=== PATIENT | male | born 1980 | race Caucasian/White ===

== ENCOUNTER 2016-07-31 10:33 | Emergency (ER) | payer OTHER ==
[2016-07-31 11:18] VITALS: BP 111/69; PULSE 73; TEMP 97.9; BMI 23.3
[2016-07-31] MEDS ORDERED: IBUPROFEN 600 MG TABLET (FP) PO ONE ×2 (11:34)
--- NOTE | 2016-07-31 12:41 | PDOC ---
History of Present Illness - General Chief Complaint: Pain, Acute Stated Complaint: LT WRIST PAIN Time Seen by Provider: 07/31/16 11:27 History Source: Patient Exam Limitations: No Limitations - History of Present Illness Initial Comments: 07/31/16 12:36 CC left wrist pain post overuse last week; had old fx at age 14 Occurred: reports: last week Severity: reports: mild Upper Extremity Pain Location: left: wrist Method of Injury: reports: twisted Past History - Past Medical History Allergies/Adverse Reactions: Allergies Allergy/AdvReac Type Severity Reaction Status Date / Time No Known Allergies Allergy Verified 07/31/16 11:02 Home Medications: Ambulatory Orders Pantoprazole Sodium [Protonix] 40 mg PO DAILY #30 tablet. 01/06/16 Other medical history: denies - Psycho/Social/Smoking Cessation Hx Anxiety: No Suicidal Ideation: No Smoking Status: No Smoking History: Former smoker Have you smoked in the past 12 months: No Number of Cigarettes Smoked Daily: 3 Information on smoking cessation initiated: No Hx Alcohol Use: Yes Drug/Substance Use Hx: No Substance Use Type: None Review of Systems - Review of Systems Constitutional: No: Chills, Fever, Malaise Respiratory: No: Symptoms reported, Cough Musculoskeletal: Yes: Joint Swelling. No: Gout, Muscle Pain Integumentary: No: Symptoms Reported Neurological: No: Symptoms reported *Physical Exam - Vital Signs Last Vital Signs Temp Pulse Resp BP Pulse Ox 97.9 F 73 14 111/69 100 07/31/16 11:02 07/31/16 11:02 07/31/16 11:02 07/31/16 11:02 07/31/16 11:02 - Physical Exam General Appearance: Yes: Appropriately Dressed. No: Apparent Distress HEENT: positive: TMs Normal Neck: positive: Supple. negative: Tender, Rigid Respiratory/Chest: positive: Lungs Clear Musculoskeletal: positive: Other (tender to wrist center carpals; FROM Wrist with pain at full extension) ED Treatment Course - RADIOLOGY Radiology Studies Ordered: Category Date Time Status WRIST-LEFT [RAD] Stat Radiology 07/31/16 11:33 Completed - Medications Given in the ED: ED Medications Discontinued Medications Generic Name Dose Route Start Last Admin Trade Name Freq PRN Reason Stop Dose Admin Ibuprofen 600 mg 07/31/16 11:34 07/31/16 11:43 Motrin - PO 07/31/16 11:35 600 mg ONCE ONE Administration Medical Decision Making - Medical Decision Making 07/31/16 12:42 no fx noted; will sugessts 3 days of splint wearins; follow up with ortho next week in no better *DC/Admit/Observation/Transfer Diagnosis at time of Disposition: Strain of left wrist Qualifiers: Encounter type: initial encounter Qualified Code(s): S66.912A - Strain of unspecified muscle, fascia and tendon at wrist and hand level, left hand, initial encounter - Discharge Dispostion Disposition: HOME Condition at time of disposition: Stable Admit: No - Referrals Referrals: Mariposa Alegria MD [Primary Care Provider] - Adis Reich MD [Staff Physician] - - Patient Instructions Additional Instructions: advil 400mg 3 times daily; wear splint at bedtime and while active; see Dr Reich 2 weeks if no better - Post Discharge Activity Work/School Note: Back to Work
== END 2016-07-31 12:47 | disposition home or self-care (01) ==
LOC: JERFT 10:33 → JER 10:33 → JERFT 12:47
DX: S66.912A Strain of unspecified muscle, fascia and tendon at wrist and hand level, left hand, initial encounter (principal); M70.832 Other soft tissue disorders related to use, overuse and pressure, left forearm; Y93.89 Activity, other specified
CPT/HCPCS: 73110-TC-LT; 99281-25

== ENCOUNTER 2016-08-11 13:42 | Emergency (ER) | payer OTHER ==
[2016-08-11 13:58] VITALS: BP 106/77; PULSE 89; TEMP 98.7; BMI 23.8
--- NOTE | 2016-08-11 14:02 | PDOC ---
History of Present Illness - General Chief Complaint: Pain, Acute Stated Complaint: WRIST PAIN Time Seen by Provider: 08/11/16 13:57 History Source: Patient Exam Limitations: No Limitations - History of Present Illness Initial Comments: 08/11/16 14:47 CHIEF COMPLAINT: Wrist pain HISTORY OF PRESENT ILLNESS: Healthy 35 year old male with a history of left wrist fracture at age 14, presented on 07/31 with wrist pain. Xray at that time showed no acute fracture. Patient was discharged with splint and RICE therapy. Has orthopedic appointment on 08/16. Presents here for work note. Past History - Travel Traveled outside of the country in the last 30 days: No Close contact w/someone who was outside of country & ill: No - Past Medical History Allergies/Adverse Reactions: Allergies Allergy/AdvReac Type Severity Reaction Status Date / Time No Known Allergies Allergy Verified 08/11/16 13:54 Home Medications: Ambulatory Orders Pantoprazole Sodium [Protonix] 40 mg PO DAILY #30 tablet. 01/06/16 Other medical history: denies - Psycho/Social/Smoking Cessation Hx Anxiety: No Suicidal Ideation: No Smoking Status: No Smoking History: Former smoker Have you smoked in the past 12 months: Yes Number of Cigarettes Smoked Daily: 3 If you are a former smoker, when did you quit?: 2 months Information on smoking cessation initiated: No Hx Alcohol Use: Yes Drug/Substance Use Hx: No Substance Use Type: None Review of Systems - Review of Systems Constitutional: No: Chills, Fever, Malaise Musculoskeletal: Yes: See HPI *Physical Exam - Vital Signs Last Vital Signs Temp Pulse Resp BP Pulse Ox 98.7 F 89 14 106/77 100 08/11/16 13:54 08/11/16 13:54 08/11/16 13:54 08/11/16 13:54 08/11/16 13:54 - Physical Exam General Appearance: Yes: Nourished, Appropriately Dressed HEENT: positive: EOMI, SHARIF Musculoskeletal: positive: Normal Inspection, Decreased Range of Motion, Other ( Splinted. Normal movement and sensation of fingers.) Medical Decision Making - Medical Decision Making 08/11/16 14:49 A/P: 35 year old male with wrist sprain, has orthopedic followup scheduled. -Continue splint, RICE therapy, NSAIDS -Return precautions reviewed *DC/Admit/Observation/Transfer Diagnosis at time of Disposition: Wrist pain, left - Discharge Dispostion Disposition: HOME Condition at time of disposition: Stable Admit: No - Referrals Referrals: Adis Reich MD [Staff Physician] - - Patient Instructions Printed Discharge Instructions: DI for Wrist Sprain Additional Instructions: -Follow up with Dr. Reich on 08/16 as scheduled. -Continue ice, ibuprofen, and splint. -Return here for any concerning symptoms. - Post Discharge Activity Work/School Note: Back to Work
== END 2016-08-11 14:21 | disposition home or self-care (01) ==
LOC: JER 13:42
DX: M25.532 Pain in left wrist (principal); Z87.81 Personal history of (healed) traumatic fracture
CPT/HCPCS: 99281-25

== ENCOUNTER 2017-01-19 08:04 | Emergency (ER) | payer OTHER ==
[2017-01-19 08:12] VITALS: BP 129/64; PULSE 89; TEMP 98.7; BMI 26.2
--- NOTE | 2017-01-19 09:01 | PDOC ---
History of Present Illness - General Chief Complaint: Back Pain Stated Complaint: BACK PAIN Time Seen by Provider: 01/19/17 08:15 History Source: Patient Exam Limitations: No Limitations - History of Present Illness Initial Comments: 01/19/17 08:58 CHIEF COMPLAINT: Right lateral Lower back pain HISTORY OF PRESENT ILLNESS:36-year-old male, No significant medical history presents to the ER with pain to the right lateral lower back. Pain on inspiration. Nonradiating pain, no neurosensory deficits, no bowel or bladder difficulty incontinence or urinary retention, no saddle anesthesia, no footdrop. No history of IVDU or hisotry of cancer. Patient denies any recent travel, no prolonged sitting, no risk factors for pulmonary embolus. REVIEW OF SYSTEMS: GENERAL: Afebrile, denies any weakness RESPIRATORY: No cough, wheezing, or hemoptysis. CARDIAC: No chest pain or shortness of breath MUSCULOSKELETAL: Pain to right lateral lower back. No point tenderness. SKIN : No erythema, no bruising, no deformity. GI/: Denies any abdominal pain, no urinary difficulty, incontinence or urinary retention. RECTAL: Denies any difficulty this A.m. NEUROLOGICAL: Denies any numbness or tingling. No neurosensory deficits. PHYSICAL EXAM: GENERAL: The patient is awake, alert, and fully oriented, in no acute distress. RESPIRATORY: Lungs clear bilaterally, no rhonchi wheezes or crackles CARDIAC: S1-S2 audible, no murmur rub or gallop MUSCULOSKELETAL: Pain to right lateral lower back, nonradiating, no tingling or sensory deficit. Less than 2 second cap refill, +4 popliteal and pedal pulses. GI/: Abdomen soft, nontender, nondistended. No rebound tenderness. No masses palpable. MUSCULOSKELETAL: No spinal point tenderness. Normal reflexive and no deficits to sensation or strength. RECTAL: Deferred patient with no neurological findings SKIN: Warm, Dry, normal turgor, no erythema, no edema no bruising. Past History - Past Medical History Allergies/Adverse Reactions: Allergies Allergy/AdvReac Type Severity Reaction Status Date / Time No Known Allergies Allergy Verified 01/19/17 08:12 Home Medications: Ambulatory Orders Cyclobenzaprine HCl [Flexeril -] 10 mg PO TID #21 tablet 01/19/17 Ibuprofen [Motrin -] 600 mg PO QID #28 tablet 01/19/17 Other medical history: NONE - Psycho/Social/Smoking Cessation Hx Anxiety: No Suicidal Ideation: No Smoking Status: No Smoking History: Never smoked Have you smoked in the past 12 months: Yes Number of Cigarettes Smoked Daily: 3 If you are a former smoker, when did you quit?: 2 months Hx Alcohol Use: Yes (SOCIAL) Drug/Substance Use Hx: No Substance Use Type: None *Physical Exam - Vital Signs Last Vital Signs Temp Pulse Resp BP Pulse Ox 98.7 F 89 20 129/64 97 01/19/17 08:09 01/19/17 08:09 01/19/17 08:09 01/19/17 08:09 01/19/17 08:09 ED Treatment Course - RADIOLOGY Radiology Studies Ordered: Category Date Time Status CHEST PA & LAT [RAD] Stat Radiology 01/19/17 08:37 Ordered Medical Decision Making - Medical Decision Making 01/19/17 11:17 A/P: Patient with right lateral lower back pain, woke up with pain, on assessment appears to be spasmodic in nature, will perform chest x-ray because of pain on inspiration to rule out spontaneous pneumo, patient is not at risk for PE. X-rays negative for pneumo or acute cardiopulmonary disease. Offered patient Toradol however he refused will give patient Motrin for pain, discharge on Flexeril and Motrin, follow-up with orthopedics Patient states some relief after Motrin, denies any pain on inspiration. Will DC patient home as above. I discussed the physical exam findings, ancillary test results and final diagnoses with the patient. I answered all of the patient's questions. The patient was satisfied with the care received and felt comfortable with the discharge plan and treatment plan. The patient will call to arrange follow-up and will return to the Emergency Department with any new, persistent or worsening symptoms. *DC/Admit/Observation/Transfer Diagnosis at time of Disposition: Back pain Qualifiers: Back pain location: low back pain Chronicity: acute Back pain laterality: right Sciatica presence: without sciatica Qualified Code(s): M54.5 - Low back pain - Discharge Dispostion Disposition: HOME Condition at time of disposition: Good Admit: No - Prescriptions Prescriptions: Cyclobenzaprine HCl [Flexeril -] 10 mg PO TID #21 tablet Ibuprofen [Motrin -] 600 mg PO QID #28 tablet - Referrals Referrals: Mat Raygoza MD [Staff Physician] - - Patient Instructions Printed Discharge Instructions: Low Back Pain Additional Instructions: 1. Please return to the emergency department with any numbness, tingling, weakness, numbness or tingling to groin or legs, or loss of bowel or bladder function. 2. Use pain medication as ordered. 3. Please is to followup in the office of Dr. Raygoza for evaluation within a week if no improvement. 4. Ice or heat to lower back 5. Refrain from lifting anything above 10 pounds, until pain resolved. - Post Discharge Activity Work/School Note: Back to Work
[2017-01-19] MEDS ORDERED: KETOROLAC TROMETHAMINE 60 MG/2 ML VIAL IM ONE (09:05)
[2017-01-19] MEDS ORDERED: KETOROLAC TROMETHAMINE 60 MG/2 ML VIAL ONE (09:09)
[2017-01-19] MEDS ORDERED: IBUPROFEN 600 MG TABLET (FP) PO ONE ×2 (09:26→09:27)
== END 2017-01-19 09:45 | disposition home or self-care (01) ==
LOC: JERFT 08:04
DX: M54.5 Low back pain (principal)
CPT/HCPCS: 71020-TC; 99281-25

== ENCOUNTER 2019-07-01 20:26 | Emergency (ER) | payer SELFPAY ==
[2019-07-01 20:33] VITALS: TEMP 98.2; BMI 25.7
[2019-07-01] MEDS ORDERED: SODIUM CHLORIDE 1,000 ML IV STA (20:58)
[2019-07-01] MEDS ORDERED: morphine CARPU-JECT 4 MG/1 ML DISP.SYRIN IVPUSH ONE (20:58)
[2019-07-01] MEDS ORDERED: ONDANSETRON 4 MG/2 ML VIAL IVPUSH ONE (21:00)
--- NOTE | 2019-07-01 21:10 | PDOC ---
History of Present Illness - General Chief Complaint: Pain Stated Complaint: VOMITING PAIN ONTHE LEFT SIDE Time Seen by Provider: 07/01/19 20:48 History Source: Patient Exam Limitations: No Limitations - History of Present Illness Initial Comments: 07/01/19 21:04 Patient is a 38-year-old male with no past medical history who presents to the ED with complaint of left-sided upper abdominal pain that started about 4 PM today. He states the pain is intermittent and grabbing in nature. He has had multiple episodes of vomiting since. He denies any dysuria or fevers. He denies any chest pain or shortness of breath. He states that this pain has happened to him many times since 2018. He has never followed up after being seen in the ED 1 time for similar pain and was diagnosed with a passed kidney stone. The patient states he gets this pain often and when he gets it he puts pressure on his left upper abdomen and it resolves. He denies any associated diarrhea. He has not tried taking anything for his pain. Past History - Past Medical History Allergies/Adverse Reactions: Allergies Allergy/AdvReac Type Severity Reaction Status Date / Time No Known Allergies Allergy Verified 01/20/18 10:16 Home Medications: Ambulatory Orders NK [No Known Home Medication] 01/20/18 COPD: No - Psycho Social/Smoking Cessation Hx Smoking Status: No Smoking History: Never smoked Have you smoked in the past 12 months: Yes Number of Cigarettes Smoked Daily: 3 If you are a former smoker, when did you quit?: 2 months Information on smoking cessation initiated: No Hx Alcohol Use: No Drug/Substance Use Hx: Yes (marijuana) Substance Use Type: None Review of Systems - Review of Systems Comments:: 07/01/19 21:06 - Review of Systems Able to Perform ROS?: Yes Constitutional: No: Fever, Chills, Loss of Appetite, Night Sweats, Weakness HEENTM: No: Eye Pain, Vision changes, Ear Pain, Throat Pain, Throat Swelling, Mouth Pain, Difficulty Swallowing Respiratory: No: Cough, Shortness of Breath, Wheezing, Sputum Production Cardiac (ROS): No: Chest Pain, Chest Tightness, Palpitations, Irregular Heart Beat, Edema ABD/GI: Positive: Left upper quadrant abdominal pain, nausea, vomiting; no diarrhea : No Dysuria, No Hematuria, No Frequency, No Urgency Musculoskeletal: No: Muscle Pain, Back Pain, Joint Pain, Muscle Weakness, Neck Pain Integumentary: No: Lesions, Rash Neurological: No: Headache, Numbness, Tingling, Weakness, Speech Difficulties *Physical Exam - Vital Signs Last Vital Signs Temp Pulse Resp BP Pulse Ox 98.2 F 93 H 19 101/68 100 07/01/19 20:29 07/01/19 20:29 07/01/19 20:29 07/01/19 20:29 07/01/19 20:29 - Physical Exam 07/01/19 21:07 - Physical Exam General Appearance: Nourished, Appropriately Dressed; moderate distress secondary to pain, Patient obviously uncomfortable Neck: Supple, No Decreased range of motion Respiratory/Chest: Lungs Clear, Normal Breath Sounds. No Respiratory Distress, No Accessory Muscle Use Cardiovascular: Regular Rhythm, Regular Rate, S1, S2 Gastrointestinal/Abdominal: Normal Bowel Sounds, Soft. No reproducible tenderness to the diffuse abdomen. No CVA tenderness bilateral Musculoskeletal: Normal Inspection. No Decreased Range of Motion Extremity: Normal Capillary Refill, Normal Inspection Integumentary: Normal Color, Dry. No Rash Neurologic: forgesmith II-XII NML intact, Fully Oriented, Alert, Normal Mood/Affect, Normal Response ED Treatment Course - LABORATORY CBC & Chemistry Diagram: 07/01/19 21:45 07/01/19 21:45 Medical Decision Making - Medical Decision Making 07/01/19 21:08 Patient is a 38-year-old male with left upper quadrant abdominal pain. We will evaluate the patient with lab work and a CT scan with contrast. Antiemetics, Pepcid and morphine will be given to control the patient's pain. 07/01/19 22:39 Patient admits to feeling much better than he did when he first came in. He is very thirsty and asking to drink but we will have him hold off until the CT scan is resulted. 07/02/19 00:[address] scan is negative for any acute pathology. He has been given p.o. fluids in the ED and has tolerated them well. He states he is feeling much better. The patient is pending his urinalysis and if within normal limits we will discharge him with follow-up to a GI doctor for further evaluation. 07/02/19 01:24 Lab had to rerun the patient's urinalysis. I have little suspicion that the patient has a UTI and will discharge the patient. If the urinalysis is concerning I will call the patient back with results. I made the patient aware that he should follow-up with a GI doctor and referral has been given to him. He should drink plenty of fluids and eat a bland diet. He has been given strict return precautions and he understands and agrees with this treatment and plan. Discharge - Discharge Information Problems reviewed: Yes Clinical Impression/Diagnosis: Gastroenteritis Condition: Stable Disposition: HOME - Follow up/Referral Referrals: Mariposa Alegria MD [Primary Care Provider] - Paige Licea DO [Staff Physician] - - Patient Discharge Instructions Patient Printed Discharge Instructions: DI for Viral Gastroenteritis -- Adult, [place] Diet Additional Instructions: Drink plenty of fluids and get plenty of rest. Eat a bland diet and avoid spicy , acidic, fried, greasy, caffeinated foods. Be sure to follow-up with a GI doctor and a referral has been given to you. Return to the emergency department for any worsening symptoms such as profuse vomiting, shaking chills, bloody diarrhea or blood in your vomit, high fevers or any other worsening symptoms. - Post Discharge Activity Work/Back to School Note: Back to Work
[2019-07-01] MEDS ORDERED: morphine SULFATE 4 MG/ML VIAL ONE (21:25)
[2019-07-01] MEDS ORDERED: FAMOTIDINE 20 MG/50 ML IVPB 20 MG/50 ML MG IVPB ONE (21:25)
[2019-07-01 22:02] LABS: BASO % 0.6 % (0-2.0); EOS % 0.4 % (0-4.5); HEMOGLOBIN 14.9 GM/dL (11.7-16.9); LYMPH % 6.5 % (8-40); MCH 25.3 pg (25.7-33.7); MCHC 32.3 g/dl (32.0-35.9); MEAN CELL VOLUME 78.3 fl (80-96); MONO % 6.2 % (3.8-10.2); NEUT % 86.3 % (42.8-82.8); PLATELET COUNT 255 K/MM3 (134-434); RBC 5.88 M/mm3 (4.00-5.60); RDW 14.8 % (11.9-15.9); WHITE BLOOD COUNT 15.9 K/mm3 (4.0-10.0)
[2019-07-01 22:34] LABS: ALBUMIN 4.2 g/dl (3.4-5.0); BLOOD UREA NITROGEN 15.8 mg/dL (7-18); CALCIUM 9.7 mg/dL (8.5-10.1); CREATININE 1.1 mg/dL (0.55-1.3); POTASSIUM 4.2 mmol/L (3.5-5.1); TOT PROT 8.4 g/dl (6.4-8.2)
[2019-07-02] MEDS ORDERED: ONDANSETRON 4 MG/2 ML VIAL IVPUSH ONE (01:44)
[2019-07-02 01:53] LABS: URINE APPEARANCE Clear; URINE BILIRUBIN Negative (NEGATIVE); URINE COLOR Yellow; URINE GLUCOSE (UA) Negative (NEGATIVE); URINE KETONE 3+ (NEGATIVE); URINE LEUK ESTERASE Negative (NEGATIVE); URINE NITRITE Negative (NEGATIVE); URINE PROTEIN Negative (NEGATIVE); URINE UROBILINOGEN 0.2 mg/dL (0.2-1.0)
[2019-07-02 02:02] VITALS: BP 112/82; PULSE 82
== END 2019-07-02 02:03 | disposition home or self-care (01) ==
LOC: JER 20:26
PROC: 3E033GC Introduction of Other Therapeutic Substance into Peripheral Vein, Percutaneous Approach (ICD-10-PCS; principal; 2019-07-01)
PROC: 3E033GC Introduction of Other Therapeutic Substance into Peripheral Vein, Percutaneous Approach (ICD-10-PCS; 2019-07-01)
PROC: 3E033NZ Introduction of Analgesics, Hypnotics, Sedatives into Peripheral Vein, Percutaneous Approach (ICD-10-PCS; 2019-07-01)
DX: K52.9 Noninfective gastroenteritis and colitis, unspecified (principal)
CPT/HCPCS: 36415; 72193-TC; 74160-TC; 80053; 81003; 83690; 85025; 99283-25; J7030; Q9967

== ENCOUNTER 2020-11-29 16:47 | Emergency (ER) | payer OTHER ==
[2020-11-29 17:06] VITALS: BP 121/75; PULSE 100; TEMP 97.9; BMI 27.4
[2020-11-29] MEDS ORDERED: METHOCARBAMOL 500 MG TABLET PO ONE (17:08)
[2020-11-29] MEDS ORDERED: METHOCARBAMOL 500 MG TABLET ONE (17:08)
[2020-11-29] MEDS ORDERED: KETOROLAC TROMETHAMINE 30 MG/1 ML VIAL IM ONE (17:08)
[2020-11-29] MEDS ORDERED: LIDOCAINE 5% TOPICAL PATCH TP ONE (17:08)
[2020-11-29] MEDS ORDERED: LIDOCAINE 5% TOPICAL PATCH ONE (17:08)
[2020-11-29] MEDS ORDERED: IBUPROFEN 600 MG TABLET (FP) PO ONE ×2 (17:09)
== END 2020-11-29 17:42 | disposition home or self-care (01) ==
LOC: JER 16:47 → JERFT 16:47
DX: M62.830 Muscle spasm of back (principal)
CPT/HCPCS: 72100-TC-FY; 99283-25